=== PATIENT | female | born 2000 | race American Indian/Alaskan Native ===

== ENCOUNTER 2019-01-08 16:45 | Inpatient (IN) | payer MEDICAID ==
[2019-01-08] MEDS ORDERED: Sodium Chloride 0.9% 10 ML Syringe FLUSH PRN (16:57)
[2019-01-08] MEDS ORDERED: Nalbuphine 20 MG/ML 1 ML Syringe IVPUSH PRN (16:57)
[2019-01-08] MEDS ORDERED: Ampicillin 2 GM in Sodium Chloride 0.9% 100 ML IV ONE (16:57)
[2019-01-08] MEDS ORDERED: Ampicillin 2 GM AdvVial IV ONE (17:00)
[2019-01-08] MEDS: Lactated Ringers 1,000 ML IV SCH ×3 (17:07→19:56)
[2019-01-08] MEDS ORDERED: Oxytocin/Lactated Ringers 10 UNIT/1,000 ML BAG IV SCH (17:15)
[2019-01-08] MEDS ORDERED: diphenhydrAMINE 50 MG/ML SDV IVPUSH PRN (17:42)
[2019-01-08] MEDS ORDERED: Ondansetron 4 MG/2 ML SDV IVPUSH PRN (17:42)
[2019-01-08] MEDS ORDERED: ePHEDrine 50 MG/ML SDV IVPUSH PRN (17:42)
[2019-01-08] MEDS ORDERED: fentaNYL 100 MCG/2 ML SDV EPIDUR PRN (17:42)
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
[2019-01-08] MEDS ORDERED: Phenylephrine 1 MG in Sodium Chloride 0.9% 10 ML IV SCH (17:45)
[2019-01-08] MEDS ORDERED: Bupivacaine/fentaNYL/NS 100 ML Bag EPIDUR SCH (17:45)
--- NOTE | 2019-01-08 17:45 | PCM.PREANE ---
Preanesthetic Assessment - Anesthesia/Transfusion/Family Hx Anesthesia History: No Prior Anesthesia Family History of Anesthesia Reaction: No Transfusion History: No Prior Transfusion(s) Intubation History: Unknown - Review of Systems General: No Symptoms Pulmonary: No Symptoms Cardiovascular: No Symptoms Gastrointestinal: No Symptoms Neurological: No Symptoms Other: Reports: None - Physical Assessment NPO Status Date: 01/08/19 NPO Status Time: 10:00 Pulse: 77 O2 Sat by Pulse Oximetry: 99 Respiratory Rate: 20 Blood Pressure: 131/82 Temperature: 36.9 C Vital Signs: Last Vital Signs Temp 36.9 C 01/08/19 16:57 Pulse 77 01/08/19 17:33 Resp BP 131/82 01/08/19 17:12 Pulse Ox Height: 1.55 m Weight: 63.957 kg ASA Class: 2 Mental Status: Alert & Oriented x3 Airway Class: Mallampati = 2 Dentition: Reports: Normal Dentition, Caries Thyro-Mental Finger Breadths: 3 Mouth Opening Finger Breadths: 3 ROM/Head Extension: Full Lungs: Clear to Auscultation, Normal Respiratory Effort Cardiovascular: Regular Rate, Regular Rhythm, No Murmurs - Lab Values: Laboratory Last Values WBC 8.19 K/mm3 (3.98-10.04) 01/08/19 17:08 RBC 4.15 M/mm3 (3.98-5.22) 01/08/19 17:08 Hgb 9.7 gm/L (11.2-15.7) L 01/08/19 17:08 Hct 31.2 % (34.1-44.9) L 01/08/19 17:08 MCV 75.2 fl (79.4-94.8) L 01/08/19 17:08 MCH 23.4 pg (25.6-32.2) L 01/08/19 17:08 MCHC 31.1 g/dl (32.2-35.5) L 01/08/19 17:08 RDW Std Deviation 37.2 fL (36.4-46.3) 01/08/19 17:08 Plt Count 238 K/mm3 (182-369) 01/08/19 17:08 MPV 11.2 fl (9.4-12.3) 01/08/19 17:08 Neut % (Auto) 82.3 % (34.0-71.1) H 01/08/19 17:08 Lymph % (Auto) 13.3 % (19.3-51.7) L 01/08/19 17:08 [place] % (Auto) 3.8 % (4.7-12.5) L 01/08/19 17:08 Eos % (Auto) 0.1 (0.7-5.8) L 01/08/19 17:08 Baso % (Auto) 0.1 % (0.1-1.2) 01/08/19 17:08 Neut # (Auto) 6.74 K/mm3 (1.56-6.13) H 01/08/19 17:08 Lymph # (Auto) 1.09 K/mm3 (1.18-3.74) L 01/08/19 17:08 [place] # (Auto) 0.31 K/mm3 (0.24-0.36) 01/08/19 17:08 Eos # (Auto) 0.01 K/mm3 (0.04-0.36) L 01/08/19 17:08 Baso # (Auto) 0.01 K/mm3 (0.01-0.08) 01/08/19 17:08 Urine Color Yellow (Yellow) 01/08/19 17:30 Urine Appearance Clear (Clear) 01/08/19 17:30 Urine pH 7.0 (5.0-8.0) 01/08/19 17:30 Ur Specific [place] 1.020 (1.005-1.030) 01/08/19 17:30 Urine Protein 2+ (Negative) H 01/08/19 17:30 Urine Glucose (UA) Negative (Negative) 01/08/19 17:30 Urine Ketones Negative (Negative) 01/08/19 17:30 Urine Occult Blood 1+ (Negative) H 01/08/19 17:30 Urine Nitrite Negative (Negative) 01/08/19 17:30 Urine Bilirubin Negative (Negative) 01/08/19 17:30 Urine Urobilinogen 1.0 (0.2-1.0) 01/08/19 17:30 Ur Leukocyte Esterase Negative (Negative) 01/08/19 17:30 Above labs reviewed and noted and within acceptable ranges to proceed with epidural. - Allergies Allergies/Adverse Reactions: Allergies Allergy/AdvReac Type Severity Reaction Status Date / Time No Known Allergies Allergy Verified 01/08/19 16:56 - Anesthesia Plan Pre-Op Medication Ordered: None - Acknowledgements Anesthesia Type Planned: Epidural Pt an Appropriate Candidate for the Planned Anesthesia: Yes Alternatives and Risks of Anesthesia Discussed w Pt/Guardian: Yes Pt/Guardian Understands and Agrees with Anesthesia Plan: Yes PreAnesthesia Questionnaire - CURRENT (IN HOUSE) MEDS Current Meds: Current Medications Diphenhydramine HCl (Benadryl) 25 mg IVPUSH Q6H PRN PRN Reason: pruritis Diphtheria/Tetanus/Acell Pertussis (Adacel) 0.5 ml IM .ONCE ONE Stop: 01/09/19 17:39 Ephedrine Sulfate (Ephedrine Sulfate) 5 mg IVPUSH ASDIRECTED PRN PRN Reason: Hypotension Fentanyl (Sublimaze) 100 mcg EPIDUR Q3H PRN PRN Reason: Pain Fentanyl/Bupivacaine HCl (Fentanyl/Bupivacaine/Ns 2 Mcg-0.125% 100 Ml) 100 ml EPIDUR ASDIRECTED THERESA Ampicillin Sodium 1 gm/ Sodium (Chloride) 100 mls @ 200 mls/hr IV Q4H THERESA Lactated Ringer's (Ringers, Lactated) 1,000 mls @ 100 mls/hr IV ASDIRECTED THERESA Last Admin: 01/08/19 17:36 Dose: 999 mls/hr Oxytocin/Lactated Ringer's (Pitocin In Lr 10 Units/1,000 Ml) 10 unit in 1,000 mls @ 500 mls/hr IV .CONTINUOUS THERESA Phenylephrine HCl 1 mg/ Sodium (Chloride) 10.1 mls @ 1 mls/sec IV TITRATE THERESA; Protocol Nalbuphine HCl (Nubain) 10 mg IVPUSH Q2H PRN PRN Reason: pain Last Admin: 01/08/19 17:10 Dose: 10 mg Ondansetron HCl (Zofran) 4 mg IVPUSH ONETIME PRN PRN Reason: Nausea/Vomiting Sodium Chloride (Saline Flush) 10 ml FLUSH ASDIRECTED PRN PRN Reason: Keep Vein Open Discontinued Medications Ampicillin Sodium (Ampicillin) Confirm Administered Dose 2 gm IV .STK-MED ONE Stop: 01/08/19 17:01 Last Admin: 01/08/19 17:08 Dose: Not Given Ampicillin Sodium 2 gm/ Sodium (Chloride) 100 mls @ 200 mls/hr IV ONETIME ONE Stop: 01/08/19 17:26 Last Admin: 01/08/19 17:08 Dose: 200 mls/hr
[2019-01-08] MEDS ORDERED: fentaNYL/Bupivacaine-NS 2 MCG/ML-0.125%/PF 100 ML Bag EP SCH (17:57)
[2019-01-08] MEDS: Ampicillin 1 GM in Sodium Chloride 0.9% 100 ML IV SCH (20:53)
[2019-01-08] MEDS ORDERED: Lidocaine 1.5% with EPINEPHrine 1:200,000 5 ML Amp ONE (22:00)
[2019-01-08] MEDS ORDERED: Bupivacaine 0.25% 10 ML SDV ONE (22:00)
--- NOTE | 2019-01-09 00:50 | PCM.SN ---
- Free Text/Narrative Note: Delivery note: Rosa is a 18-year-old 1 now para 1001 menarche changing female who was admitted on the afternoon of 01/08/2019 in active labor. She is 4 cm upon arrival in labor and delivery, marc every 3 minutes and in moderate to severe discomfort. She had not had any care since 20 weeks gestation and we did not have any laboratory testing on her or records from any care whatsoever. She is admitted, laboratory testing was done and she was started on antibiotics for group B strep prophylaxis. She had an epidural catheter placed for labor analgesia. She progressed steadily to complete cervical dilation and pushed for approximately 1 hour. At 0020 hours on 2018 patient delivered a viable, powell, male infant weighing 6 pounds 15.1 ounces (3150 g) and had Apgars of 8 and 9 and a length of 20.5 inches. Baby delivered in a direct occiput anterior position. She had a right labial laceration. After the baby was born due to meconium-stained amniotic fluid the cord was clamped 2 cut and baby was taken to the warmer so Dr. calvin, cellar worker, could attend to the baby. Cord blood was obtained. The placenta then delivered in a Hill presentation, appeared intact and complete and was discarded per patient desire. The umbilical cord had 3 blood vessels. The right labia minora laceration was closed with a short running suture of 3-0 Monocryl. Epidural was used as anesthesia. Estimated blood loss was 100 mL. Patient plans to breast-feed. Condition: Good.
[2019-01-09] MEDS ORDERED: Benzocaine/Menthol 20%-0.5% Spray 56 GM Canister TOP PRN (01:26)
[2019-01-09] MEDS ORDERED: Witch Hazel Medicated Pads 100/Jar TOP PRN (01:26)
[2019-01-09] MEDS ORDERED: Acetaminophen 325 MG Tab PO PRN (01:26)
[2019-01-09] MEDS ORDERED: Lanolin 100% Cream 7 GM Tube TOP PRN (01:26)
[2019-01-09] MEDS: Ibuprofen 600 MG Tab PO PRN ×5 (02:01→22:39)
[2019-01-09] MEDS: Ampicillin 1 GM in Sodium Chloride 0.9% 100 ML IV SCH (04:36)
--- NOTE | 2019-01-09 08:26 | PCM48HPAN ---
Post Anesthesia Note - EVALUATION WITHIN 48HRS OF ANESTHETIC Vital Signs in Normal Range: Yes Patient Participated in Evaluation: Yes Respiratory Function Stable: Yes Airway Patent: Yes Cardiovascular Function Stable: Yes Hydration Status Stable: Yes Pain Control Satisfactory: Yes Nausea and Vomiting Control Satisfactory: Yes Mental Status Recovered: Yes - COMMENTS/OBSERVATIONS Free Text/Narrative:: Patient denied any s/s of PDPH, residual numbness/tingling to LE, or back pain.
[2019-01-09] MEDS ORDERED: Diphtheria,Pertussis(Acell),Tetanus Vaccine 0.5 ML Syringe IM ONE (17:38)
[2019-01-09] MEDS: Docusate Sodium 100 MG Cap PO PRN (22:40)
[2019-01-10] MEDS: Ibuprofen 600 MG Tab PO PRN ×3 (09:47→23:59)
[2019-01-10] MEDS: Docusate Sodium 100 MG Cap PO PRN ×2 (11:13→21:37)
--- NOTE | 2019-01-10 11:54 | PCM.SN ---
- Free Text/Narrative Note: note: Patient is doing well in the period. Minimal lochia, voiding well, ambulated without problems. Nursing without concerns. Patient is afebrile, vital signs are stable Abdomen is flat, soft, uterus is below the umbilicus and is firm and nontender. Legs are nontender. Assessment: recovery going well. Plan: Routine care. Patient be discharged home within the next 24-48 hours.
--- NOTE | 2019-01-11 05:55 | PCM.DCSUM1 ---
Discharge Summary - Hospital Course Free Text/Narrative:: Rosa is a 18-year-old 1 now para 1001 menarche changing female who was admitted on the afternoon of 01/08/2019 in active labor. She is 4 cm upon arrival in labor and delivery, marc every 3 minutes and in moderate to severe discomfort. She had not had any care since 20 weeks gestation and we did not have any laboratory testing on her or records from any care whatsoever. She is admitted, laboratory testing was done and she was started on antibiotics for group B strep prophylaxis. She had an epidural catheter placed for labor analgesia. She progressed steadily to complete cervical dilation and pushed for approximately 1 hour. At 0020 hours on 2018 patient delivered a viable, powell, male infant weighing 6 pounds 15.1 ounces (3150 g) and had Apgars of 8 and 9 and a length of 20.5 inches. Baby delivered in a direct occiput anterior position. She had a right labial laceration. After the baby was born due to meconium-stained amniotic fluid the cord was clamped 2 cut and baby was taken to the warmer so Dr. calvin, morgue attendant, could attend to the baby. Cord blood was obtained. The placenta then delivered in a Hill presentation, appeared intact and complete and was discarded per patient desire. The umbilical cord had 3 blood vessels. The right labia minora laceration was closed with a short running suture of 3-0 Monocryl. Epidural was used as anesthesia. Estimated blood loss was 100 mL. patient initially thought she would like to nurse but has not decided on breast-feeding. She is ambulating well, has minimal lochia and desires discharge home. Condition: Good Diagnosis: Stroke: No - Discharge Data Discharge Date: 01/11/19 Discharge Disposition: Home, Self-Care 01 Condition: Good - Patient Instructions Diet: Regular Diet as Tolerated Activity: As Tolerated (No intercourse or tampons until bleeding resolves) Driving: May Drive Today Showering/Bathing: May Shower (May take a bath) Notify Provider of: Fever, Increased Pain, Swelling and Redness, Nausea and/or Vomiting - Discharge Plan Referrals: Rebekah Villarreal MD [Physician] - ([facility] - Discharge Summary/Plan Comment DC Time >30 min.: No Discharge Summary/Plan Comment: Discharge instructions: 1. Discharge home 2. Diet, activity and follow-up discussed with patient. Recommend nursing diet with increased calories and calcium. 3. Precautions given concern increased pain, bleeding, temperature, signs/ symptoms of DVT/PE. 4. Medications per home medication was printed, discussed with and given to the patient. 5. Return to clinic-Dr. Thornton at [facility] in 4 weeks. Diagnosis: Term -delivered Condition: Good - Patient Data Vitals - Most Recent: Last Vital Signs Temp 36.9 C 01/10/19 20:25 Pulse 63 01/10/19 20:25 Resp 16 01/10/19 20:25 BP 117/73 01/10/19 20:25 Pulse Ox 100 01/10/19 20:25 Weight - Most Recent: 63.957 kg I&O - Last 24 hours: Intake & Output 01/10/19 01/10/19 01/11/19 14:59 22:59 06:59 Intake Total 100 Balance 100 Med Orders - Current: Current Medications Acetaminophen (Tylenol) 650 mg PO Q4H PRN PRN Reason: mild pain or fever Last Admin: 01/10/19 21:37 Dose: 650 mg Benzocaine/Menthol (Dermoplast Pain Relief [place]) 0 gm TOP ASDIRECTED PRN PRN Reason: Perineal Comfort Measure Last Admin: 01/09/19 02:02 Dose: 1 applic Docusate Sodium (Colace) 100 mg PO BID PRN PRN Reason: Constipation Last Admin: 01/10/19 21:37 Dose: 100 mg Emollient Ointment (Lansinoh Hpa) 0 gm TOP ASDIRECTED PRN PRN Reason: Sore Nipples Ibuprofen (Motrin) 600 mg PO Q4H PRN PRN Reason: Mild pain or fever Last Admin: 01/10/19 23:59 Dose: 600 mg Witch Manisha (Tucks) 1 pad TOP ASDIRECTED PRN PRN Reason: Hemorrhoid pain Last Admin: 01/09/19 02:02 Dose: 1 applic Discontinued Medications Ampicillin Sodium (Ampicillin) Confirm Administered Dose 2 gm IV .STK-MED ONE Stop: 01/08/19 17:01 Last Admin: 01/08/19 17:08 Dose: Not Given Bupivacaine HCl (Sensorcaine-Mpf 0.25%) 10 ml .ROUTE .STK-MED ONE Stop: 01/08/19 22:01 Diphenhydramine HCl (Benadryl) 25 mg IVPUSH Q6H PRN PRN Reason: pruritis Diphtheria/Tetanus/Acell Pertussis (Adacel) 0.5 ml IM .ONCE ONE Stop: 01/09/19 17:39 Ephedrine Sulfate (Ephedrine Sulfate) 5 mg IVPUSH ASDIRECTED PRN PRN Reason: Hypotension Fentanyl (Sublimaze) 100 mcg EPIDUR Q3H PRN PRN Reason: Pain Last Admin: 01/08/19 17:53 Dose: 100 mcg Fentanyl/Bupivacaine HCl (Fentanyl/Bupivacaine/Ns 2 Mcg-0.125% 100 Ml) 100 ml EPIDUR ASDIRECTED THERESA Last Admin: 01/08/19 17:53 Dose: 100 ml Fentanyl/Bupivacaine HCl (Fwnxiyia-Ajfjg-Km 2 Mcg/Ml-0.125%) 100 ml EP ASDIRECTED THERESA Ampicillin Sodium 2 gm/ Sodium (Chloride) 100 mls @ 200 mls/hr IV ONETIME ONE Stop: 01/08/19 17:26 Last Admin: 01/08/19 17:08 Dose: 200 mls/hr Ampicillin Sodium 1 gm/ Sodium (Chloride) 100 mls @ 200 mls/hr IV Q4H THERESA Last Admin: 01/09/19 04:36 Dose: Not Given Lactated Ringer's (Ringers, Lactated) 1,000 mls @ 100 mls/hr IV ASDIRECTED THERESA Last Admin: 01/08/19 19:56 Dose: 100 mls/hr Oxytocin/Lactated Ringer's (Pitocin In Lr 10 Units/1,000 Ml) 10 unit in 1,000 mls @ 500 mls/hr IV .CONTINUOUS THERESA Last Admin: 01/09/19 00:21 Dose: 500 mls/hr Phenylephrine HCl 1 mg/ Sodium (Chloride) 10.1 mls @ 1 mls/sec IV TITRATE THERESA; Protocol Lidocaine/Epinephrine (Xylocaine-Mpf 1.5% W/Epinephrine 1:200,000) 5 ml .ROUTE .STK-MED ONE Stop: 01/08/19 22:01 Nalbuphine HCl (Nubain) 10 mg IVPUSH Q2H PRN PRN Reason: pain Last Admin: 01/08/19 17:10 Dose: 10 mg Ondansetron HCl (Zofran) 4 mg IVPUSH ONETIME PRN PRN Reason: Nausea/Vomiting Sodium Chloride (Saline Flush) 10 ml FLUSH ASDIRECTED PRN PRN Reason: Keep Vein Open
[2019-01-11] MEDS ORDERED: Diphtheria,Pertussis(Acell),Tetanus Vaccine 0.5 ML Syringe IM ONE (08:37)
== END 2019-01-11 09:00 | disposition home or self-care (01) | DRG 807 ==
LOC: JD.OBCHECK 16:45 → JD.OB 16:45 → JD.OBCHECK 16:57 → OBSVTOIN 01-09 00:20 → JD.OB 01-09 00:21
PROVIDERS: ADMIT Obstetrics & Gynecology; ATTEND Obstetrics & Gynecology
PROC: 00HU33Z Insertion of Infusion Device into Spinal Canal, Percutaneous Approach (ICD-10-PCS; 2019-01-08)
PROC: 3E0R3BZ Introduction of Anesthetic Agent into Spinal Canal, Percutaneous Approach (ICD-10-PCS; 2019-01-08)
PROC: 6A550ZT Pheresis of Cord Blood Stem Cells, Single (ICD-10-PCS; principal; 2019-01-09)
PROC: 10E0XZZ Delivery of Products of Conception, External Approach (ICD-10-PCS; principal; 2019-01-09)
PROC: 0UQMXZZ Repair Vulva, External Approach (ICD-10-PCS; principal; 2019-01-09)
PROC: 3E0234Z Introduction of Serum, Toxoid and Vaccine into Muscle, Percutaneous Approach (ICD-10-PCS; 2019-01-11)
DX: O48.0 Post-term pregnancy (principal); Z37.0 Single live birth; O77.0 Labor and delivery complicated by meconium in amniotic fluid; O70.0 First degree perineal laceration during delivery; Z3A.40 40 weeks gestation of pregnancy; Z23 Encounter for immunization
CPT/HCPCS: 01967; 36415; 51702; 59025; 59409; 80306; 81001; 85025; 86592; 86762; 86850; 86900; 86901; 87340; 90471; 90700; A9270-GY; J0290; J2300; J2590; J3010; J3490; J7030; J7120